=== PATIENT | female | born 1985 | race Two or more races ===

== ENCOUNTER 2018-06-22 22:35 | Observation (INO) | payer MEDICAID, OTHER ==
[~2018-06-22] VITALS: Ht 160 cm; Wt 112.0 kg
[2018-06-23 03:37] LABS: Urine Bacteria FEW /hpf (None Seen); Urine Blood Negative /uL (Negative); Urine Mucus FEW (None Seen); Urine Specific Gravity 1.035 (1.001-1.035); Urine WBC 1 /hpf (0 - 5)
[2018-06-23 03:49] LABS: Basophils # (auto) 0 uL; Basophils % (auto) 0.4 % (0.0-2.0); Eosinophils # (auto) 0.1 uL; Eosinophils % (auto) 1.3 % (0.0-7.0); Hematocrit 38.6 % (36.0-46.0); Hemoglobin 13.4 g/dL (12.2-16.2); Lymphocytes # (auto) 1.9 uL; Lymphocytes % (auto) 28.9 % (10.0-50.0); Mean Corpuscular Hgb Conc. 34.6 g/dL (32.0-36.0); Mean Corpuscular Volume 89.5 fL (80.0-100.0); Monocytes # (auto) 0.3 uL; Neutrophils # (auto) 4.1 uL; Neutrophils % (auto) 64.4 % (37.0-80.0); Nucleated Red Blood Cells % 0.1 %; Platelet Count (auto) 263 10^3/uL (140-450); Red Blood Cells 4.31 10^6/uL (4.0-5.20); Red Cell Distribution Width 13.8 % (11.8-14.3); White Blood Cell 6.4 10^3/uL (4.4-10.8)
[2018-06-23 04:07] LABS: Calcium 8.7 mg/dL (8.5-10.1); Potassium 3.8 mmol/L (3.5-5.1)
[2018-06-23 04:10] LABS: BUN/Creatinine Ratio 23.2; Bilirubin, Total 0.5 mg/dL (0.2-1.0); Total Protein 7.3 g/dL (6.4-8.2)
[2018-06-23 04:13] LABS: Albumin 3.3 g/dL (3.4-5.0)
[2018-06-23 06:38] VITALS: BP 113/62
== END 2018-06-23 07:25 | disposition home or self-care (01) | DRG 566 ==
LOC: ER 22:35 → OVERFLOW 22:36 → ER 06-23 07:25
PROVIDERS: ADMIT Anesthesiology; ATTEND Anesthesiology
DX: O24.419 Gestational diabetes mellitus in pregnancy, unspecified control (principal); Z3A.15 15 weeks gestation of pregnancy; Z82.49 Family history of ischemic heart disease and other diseases of the circulatory system; Z82.5 Family history of asthma and other chronic lower respiratory diseases; Z83.42 Family history of familial hypercholesterolemia
CPT/HCPCS: 36415; 80053; 81001; 82150; 82962; 83690; 84702; 85025; 99285; G0378

== ENCOUNTER 2019-01-01 07:50 | Inpatient (IN) | payer OTHER | END 2019-01-04 13:15 | disposition home or self-care (01) | LOC: LDRP 07:50 | PROC: 10D00Z1 Extraction of Products of Conception, Low, Open Approach (ICD-10-PCS; principal; 2019-01-01 13:25) | PROC: 0UL70CZ Occlusion of Bilateral Fallopian Tubes with Extraluminal Device, Open Approach (ICD-10-PCS; 2019-01-01 13:25) | DX: O32.8XX0 Maternal care for other malpresentation of fetus, not applicable or unspecified (principal); O24.429 Gestational diabetes mellitus in childbirth, unspecified control; O13.4 Gestational [pregnancy-induced] hypertension without significant proteinuria, complicating childbirth; O36.63X0 Maternal care for excessive fetal growth, third trimester, not applicable or unspecified; Z37.0 Single live birth; Z3A.38 38 weeks gestation of pregnancy; Z30.2 Encounter for sterilization ==

== ENCOUNTER 2022-01-11 17:29 | Emergency (ER) | payer OTHER ==
[~2022-01-11] VITALS: Ht 162.6 cm; Wt 108.9 kg
[~2022-01-11 17:29] MED LIST: PREN1TAB71 OR
[2022-01-11 19:55] LABS: Basophils # (auto) 0.1 10 ^3/uL (0-0.2); Basophils % (auto) 0.9 % (0.0-2.0); Eosinophils # (auto) 0.2 10 ^3/uL (0-0.8); Eosinophils % (auto) 2.5 % (0.0-7.0); Hematocrit 40.4 % (36.0-46.0); Hemoglobin 14.3 g/dL (12.2-16.2); Lymphocytes # (auto) 2.1 10 ^3/uL (0.4-5.4); Lymphocytes % (auto) 27.1 % (10.0-50.0); Mean Corpuscular Hemoglobin 29.7 pg (28.0-32.0); Mean Corpuscular Hgb Conc. 35.3 g/dL (32.0-36.0); Monocytes # (auto) 0.4 10 ^3/uL (0-1.3); Monocytes % (auto) 5.5 % (0.0-12.0); Neutrophils # (auto) 4.9 10 ^3/uL (1.6-8.6); Nucleated Red Blood Cells % 0.2 %; Red Blood Cells 4.81 10^6/uL (4.0-5.20); Red Cell Distribution Width 13.7 % (11.8-14.3); White Blood Cell 7.7 10^3/uL (4.4-10.8)
[2022-01-11 19:59] LABS: Urine Bacteria FEW /hpf (None Seen); Urine Blood 2+ /uL (Negative); Urine Mucus FEW (None Seen); Urine WBC 1 /hpf (0 - 5)
[2022-01-11 20:13] LABS: INR 1.02 (0.9-1.15); Partial Thromboplastin Time 27.3 sec (23.6-33.0)
[2022-01-11 20:14] LABS: Albumin 3.7 g/dL (3.4-5.0); BUN/Creatinine Ratio 15.3; Calcium 9.2 mg/dL (8.5-10.1); Potassium 3.8 mmol/L (3.5-5.1)
[2022-01-11] MEDS ORDERED: ONDANSETRON ODT 4 MG TAB PO ONE (20:15)
[2022-01-11] MEDS ORDERED: FAMOTIDINE 20 MG TAB PO ONE (20:15)
[2022-01-11] MEDS ORDERED: ALUM & MAG HYDROX-SIMETH LIQ(MAALOX) 30 ML PO ONE (20:15)
[2022-01-11 20:16] LABS: Bilirubin, Total 0.4 mg/dL (0.2-1.0); Total Protein 7.8 g/dL (6.4-8.2)
[2022-01-11] MEDS ORDERED: CEPH-322 PO (21:59)
[2022-01-11 22:10] VITALS: BP 147/79
== END 2022-01-11 22:23 | disposition home or self-care (01) ==
LOC: ER 17:29
DX: N39.0 Urinary tract infection, site not specified (principal); Z90.49 Acquired absence of other specified parts of digestive tract; Z90.710 Acquired absence of both cervix and uterus; Z79.899 Other long term (current) drug therapy; Z88.0 Allergy status to penicillin
CPT/HCPCS: 36415; 74176; 80053; 81001; 81025; 83690; 84702; 85025; 85610; 85730; 99284; Q0162

== ENCOUNTER 2022-01-13 14:46 | Emergency (ER) | payer OTHER ==
[~2022-01-13] VITALS: Ht 162.6 cm; Wt 114.8 kg
[~2022-01-13 14:46] MED LIST changes: +CEPH-322 PO
[2022-01-13] MEDS ORDERED: cloNIDine HCL 0.1 MG TAB PO ONE (15:00)
[2022-01-13 16:10] VITALS: BP 147/97
[2022-01-13] MEDS ORDERED: LOPE2TAB99 PO (16:38)
[2022-01-13] MEDS ORDERED: TRIA37.56 PO (16:38)
[2022-01-13] MEDS ORDERED: DICY20TA PO (16:38)
== END 2022-01-13 16:52 | disposition home or self-care (01) ==
LOC: ER 14:46
DX: I10 Essential (primary) hypertension (principal); K52.9 Noninfective gastroenteritis and colitis, unspecified; G43.909 Migraine, unspecified, not intractable, without status migrainosus; Z90.49 Acquired absence of other specified parts of digestive tract; Z90.710 Acquired absence of both cervix and uterus; Z79.899 Other long term (current) drug therapy; Z88.0 Allergy status to penicillin
CPT/HCPCS: 70450; 93005

== ENCOUNTER 2024-04-05 19:11 | Emergency (ER) | payer MEDICAID, OTHER ==
[~2024-04-05] VITALS: Ht 160 cm; Wt 110.0 kg
[~2024-04-05 19:11] MED LIST changes: -CEPH-322 PO; +CEPH250C PO; +DICY20TA PO; +LOPE2TAB99 PO; +TRIA37.587 PO
[2024-04-05 19:55] VITALS: BP 133/78; RESP 20; TEMP 98.2
[2024-04-05 20:53] VITALS: O2SAT 99
[2024-04-05 21:27] LABS: Basophils # (auto) 0.1 10 ^3/uL (0-0.2); Basophils % (auto) 0.5 % (0.0-2.0); Eosinophils # (auto) 0.1 10 ^3/uL (0-0.8); Eosinophils % (auto) 0.6 % (0.0-7.0); Hematocrit 46.5 % (36.0-46.0); Hemoglobin 15.6 g/dL (12.2-16.2); Lymphocytes # (auto) 2.2 10 ^3/uL (0.4-5.4); Lymphocytes % (auto) 15.3 % (10.0-50.0); Mean Corpuscular Hemoglobin 29.1 pg (28.0-32.0); Mean Corpuscular Hgb Conc. 33.6 g/dL (32.0-36.0); Mean Corpuscular Volume 86.6 fL (80.0-100.0); Monocytes # (auto) 0.6 10 ^3/uL (0-1.3); Monocytes % (auto) 3.9 % (0.0-12.0); Neutrophils # (auto) 11.7 10 ^3/uL (1.6-8.6); Neutrophils % (auto) 79.7 % (37.0-80.0); Nucleated Red Blood Cells % 0.3 %; Red Blood Cells 5.37 10^6/uL (4.0-5.20); Red Cell Distribution Width 13.7 % (11.8-14.3); White Blood Cell 14.7 10^3/uL (4.4-10.8)
[2024-04-05 21:40] LABS: Alanine Aminotransferase 23 U/L (7-40); Albumin 4.8 g/dL (3.2-4.8); Alkaline Phosphatase 67 U/L (46-116); Anion Gap 5 (5-15); Aspartate Aminotransferase 13 U/L (13-40); BUN/Creatinine Ratio 11.2 (10.0-20.0); Blood Urea Nitrogen 19 mg/dL (9-23); Calcium 10.8 mg/dL (8.5-10.1); Carbon Dioxide 32 mmol/L (20-30); Chloride 103 mmol/L (98-107); Glucose 134 mg/dL (74-106); Potassium 3.9 mmol/L (3.5-5.1); Sodium 140 mmol/L (136-145)
[2024-04-05 21:41] LABS: Total Protein 8.3 g/dL (5.7-8.2)
[2024-04-05] MEDS: LORazepam 0.5 MG TAB PO ONE (21:45)
[2024-04-05 21:57] VITALS: PULSE 81
== END 2024-04-05 22:13 | disposition home or self-care (01) ==
LOC: ER 19:11 → EDBD 19:11 → ER 22:13
DX: F41.9 Anxiety disorder, unspecified (principal); R42 Dizziness and giddiness; I10 Essential (primary) hypertension; E11.9 Type 2 diabetes mellitus without complications; E78.5 Hyperlipidemia, unspecified; Z88.0 Allergy status to penicillin; Z90.710 Acquired absence of both cervix and uterus; Z98.51 Tubal ligation status
CPT/HCPCS: 36415; 80053; 84484; 85025; 93005

== ENCOUNTER 2024-12-23 10:33 | Emergency (ER) | payer MEDICAID ==
[~2024-12-23] VITALS: Ht 160 cm; Wt 107.3 kg
--- NOTE | 2024-12-23 10:56 | ED.PDOC ---
GI ASSESSMENT HPI Comments HPI: Poor Historian 39 y.o female presents to the ED for a chief complaint of LUQ pain associated with nausea, vomiting and diarrhea that started 1 day ago. Patient reports pain worsened today, reported about 5 episodes of non bloody, yellow emesis and diarrhea today. Patient denies any recent travel outside the country, sick contacts, fever, chills. Patient reports there is no worsening or alleviating factors. Vitals: BP: 128/81 HR: 72 Temp: 98 F SPO2: 98% RA RR: 17 Allergies: Penicillins Past medical history: DM, HTN Past surgical history: appendectomy and tubal ligation . REVIEW OF SYSTEMS: CONSTITUTIONAL: Denies acute: fever, diaphoresis, chills, HEAD: Denies acute: headache, photophobia Eyes: Denies acute: Double vision, vision loss, eye pain, eye discharge. EARS: Denies acute: tinnitus, hearing loss, ear discharge, ear pain, THROAT: Denies acute: sore throat, swelling, difficulty swallowing , pain with swallowing, change in voice. NECK: Denies acute: neck pain, neck swelling, stiff neck. HEART: Denies acute : chest pain, palpitations, LUNGS: Denies acute: SOB, wheezing, cough, hemoptysis ABDOMEN: Denies acute: melena , hematemesis, hematochezia SKIN: Denies acute: rash, redness, lesions, itchiness. EXTREMITIES: Denies acute: calf pain, numbness, tingling, weakness, denies pain in extremity. Denies acute: Low back pain. Neuro: Denies acute: focal neurological deficit, motor or sensory focal neurological deficit, tremors, seizure like activity, confusion, dizziness, change in mental status, loss of bowel or bladder function, cauda equina like symptoms. : Denies acute: dysuria, hematuria, flank pain, increase in urinary frequency. PSYCH: Denies acute: hallucination, suicidal ideation, homicidal ideation. FEMALE: Denies acute: abnormal vaginal bleeding, foul odor, unusual discharge. PHYSICAL EXAM: General: no acute distress, awake and alert. Head: normocephalic, atraumatic. Neck: supple, trachea is midline, no swelling. Throat: Normal phonation. Eyes:, no erythema, no purulent discharge, no proptosis, no icterus. Heart: regular rate, regular rhythm, no significant murmur appreciated. Lungs: no apparent respiratory distress, Able to speak in full sentences. No wheezing, no rhonchi, no crackles. No stridors Clear to auscultation bilaterally. Abdomen: Left upper quad tender to palpation, non distended, soft, no guarding, no rebound, + bowel sounds. Neuro: Awake, Alert, oriented to name, self, situation, follows commands GCS=15. Speech is normal. Skin: no petechia, no purpura, no cyanosis, non-pale, not jaundice. Lower extremities: --no - Pitting edema no deformity, no focal swelling, no calf TTP. Makes eye contact. moves all four extremities. Face: no apparent facial droop. Left CVA tenderness to percussion Ambulating in the ED independently. ED COURSE: Chief Complaint: Abdominal Pain Time Seen by MD: 10:47 Primary Care Provider: KAM Reviewed Notes: Nurses Notes, Allergies Allergies: Coded Allergies: Penicillins (Verified Allergy, Severe, 12/23/13) Home Meds Active Scripts Ciprofloxacin Hcl (Cipro) 500 Mg Tab, 500 MG PO BID for 7 Days, #14 TAB Prov:BERNICE YANES DO 12/23/24 Ondansetron Odt 4MG Tab (ZOFRAN PO) 4 Mg Tb, 4 MG PO Q8HPRN PRN for 3 Days, #9 TAB ODT TAB-DISSOLVE IN MOUTH, THEN SWALLOW Prov:BERNICE YANES DO 12/23/24 Dicyclomine Hcl (Dicyclomine Hcl) 20 Mg Tab, 20 MG PO TID, #30 TAB Prov:ANDRÉS LYLE 01/13/22 Loperamide Hcl (Imodium A-D) 2 Mg Tab, 2 MG PO TID, #20 TAB Prov:ANDRÉS LYLE 01/13/22 Hydrochlorothiazide W/Triamter (Dyazide 37.5/25MG) 1 Cap Cp, 1 CAP PO DAILY, #30 CAP 3 Refills Prov:ANDRÉS LYLE 01/13/22 Cephalexin (KEFLEX CAPSULE) 250 Mg Cp, 250 MG PO QID for 7 Days, #28 TAB Prov:JALEESA LOPEZ MD 01/11/22 Reported Medications Vit W/ Ferrous Fumara (PNV PLUS MULTIVI) Plus Tab, 1 OR, TAB 01/02/19 Information Source: Patient Mode of Arrival: Ambulatory Timing: Days (1) Past Medical History PAST MEDICAL HISTORY: DM, High Lipids, HTN Surgical History: Appendectomy, BTL, Hysterectomy MANAGER UTILIZATION REVIEW History: Denies all MANAGER UTILIZATION REVIEW Hx Family History Family History: Reviewed,noncontributory to illness, No family hx of DM, No family hx of Heart corey Family History (Other): high lipids, asthma Social History Smoker: Non-Smoker Alcohol: Denies ETOH Use Drugs: Denies Drug Use Lives In: Home Was a procedure done? Was a procedure done?: No GI differential Dx Differential Diagnosis: Diverticular disease, Esophagitis, Gastroenteritis, Inflammatory BD, Electrolyte Imbalance, Food Poisoning, , Viral, Other (DDX include Diverticulitis, colitis, gastroenteritis, acute abdomen, SBO, enteritis, constipation, volvulus, appendicitis, Gallbladder disease, choledocolithiasis, ascending cholangitis, pancreatitis, intraAbdominal mass/neoplasm, hepatitis, UTI, pylonephritis, kidney stone, aneurysm, dissection, Inflammatory bowel disease, gastroparesis, ischemic bowel, ovarian torsion, ovarian cyst/mass, tubo-ovarian abscess, , ectopic , PID, STD.) X-Ray, Labs, Meds, VS Vital Signs Date Time Temp Pulse Resp B/P (MAP) Pulse Ox O2 Delivery O2 Flow Rate FiO2 12/23/24 15:40 98.2 71 16 125/69 (87) 99 98.2 12/23/24 14:15 97.7 74 16 117/63 (81) 97 97.7 12/23/24 11:20 78 17 95 Room Air* 0 21 12/23/24 11:20 98.5 78 17 123/68 (86) 95 98.5 12/23/24 10:51 98.0 77 17 128/81 (97) 95 Lab Test 12/23/24 12:30 12/23/24 11:00 Range/Units Urine Color Yellow Yellow Urine Clarity Turbid H Clear Urine pH 5.5 5.0-9.0 Urine Specific [place] 1.033 1.001-1.035 Urine Protein Trace H Negative Urine Ketones Negative Negative Urine Blood Negative Negative /uL Urine Nitrite Negative Negative Urine Bilirubin Negative Negative Urine Urobilinogen Normal Negative mg/dL Urine Leukocyte Esterase Negative Negative /uL Urine RBC <1 0 - 4 /hpf Urine Microscopic WBC 1 0-5 /HPF Urine Squamous Epithelial Cells Mod <5 /hpf Urine Bacteria Few H None Seen /hpf Urine Hyaline Casts Few 0 - 2 /lpf Urine Mucus Few None Seen Urine Glucose Normal Normal mg/dL Urine Test Negative Negative Stool for White Cells None seen White Blood Count 14.6 H 4.4-10.8 10^3/uL Red Blood Count 5.00 4.0-5.20 10^6/uL Hemoglobin 14.8 12.2-16.2 g/dL Hematocrit 44.1 36.0-46.0 % Mean Corpuscular Volume 88.3 80.0-100.0 fL Mean Corpuscular Hemoglobin 29.7 28.0-32.0 pg Mean Corpuscular Hemoglobin Concent 33.7 32.0-36.0 g/dL Red Cell Distribution Width 14.3 11.8-14.3 % Platelet Count 354 140-450 10^3/uL Mean Platelet Volume 7.0 6.9-10.8 fL Neutrophils (%) (Auto) 88.3 H 37.0-80.0 % Lymphocytes (%) (Auto) 8.0 L 10.0-50.0 % Monocytes (%) (Auto) 2.8 0.0-12.0 % Eosinophils (%) (Auto) 0.8 0.0-7.0 % Basophils (%) (Auto) 0.1 0.0-2.0 % Neutrophils # (Auto) 12.9 H 1.6-8.6 10 ^3/uL Lymphocytes # (Auto) 1.2 0.4-5.4 10 ^3/uL Monocytes # (Auto) 0.4 0-1.3 10 ^3/uL Eosinophils # (Auto) 0.1 0-0.8 10 ^3/uL Basophils # (Auto) 0 0-0.2 10 ^3/uL Nucleated Red Blood Cells 0.0 % Sodium Level 140 136-145 mmol/L Potassium Level 3.8 3.5-5.1 mmol/L Chloride Level 105 98-107 mmol/L Carbon Dioxide Level 24 20-31 mmol/L Anion Gap 11 5-15 Blood Urea Nitrogen 20 9-23 mg/dL Creatinine 0.78 0.550-1.02 mg/dL Glomerular Filtration Rate Calc 98 >90 mL/min BUN/Creatinine Ratio 25.6 H 10.0-20.0 Serum Glucose 146 H 74-106 mg/dL Lactic Acid Level 0.7 0.4-2.0 mmol/L Calcium Level 10.2 8.7-10.4 mg/dL Total Bilirubin 0.9 0.2-1.0 mg/dL Aspartate Amino Transferase (AST) 22 13-40 U/L Alanine Aminotransferase (ALT) 36 7-40 U/L Alkaline Phosphatase 70 46-116 U/L Troponin I High Sensitivity < 3 L </=34 ng/L Total Protein 7.7 5.7-8.2 g/dL Albumin 4.9 H 3.2-4.8 g/dL Lipase 44 12-53 U/L Microbiology Date/Time Source Procedure Growth Status 12/23/24 12:30 Stool Stool Culture - Preliminary Resulted 12/23/24 12:30 Stool Shiga Toxin I & II - Final Resulted Current Medications Medications (Trade) Dose Ordered Sig/Reyna Route Start Time Stop Time Status Last Admin Sodium Chloride 1,000 ml @ 1,000 mls/hr Q1H ONCE IV 12/23/24 11:00 12/23/24 11:59 DC 12/23/24 11:00 Ondansetron HCl (Zofran) 8 mg ONCE ONCE IV 12/23/24 11:00 12/23/24 11:59 DC 12/23/24 12:19 Acetaminophen/ Hydrocodone Bitart (Palacios 5/325MG Tab) 1 tab ONCE ONCE PO 12/23/24 15:00 12/23/24 15:02 DC 12/23/24 15:36 [place] [address] Ph: [phone] DIAGNOSTIC IMAGING Diagnostic Imaging Report : [id number] Signed PATIENT: JORGE WISE ACCT: [id number] UNIT: [id number] : 1985 LOC: ER ROOM / BED: / AGE / SEX: 39 / F ADM STATUS: REG ER SERVICE 1050 ORDERING PHYSICIAN: BERNICE YANES DO PROCEDURE(s): ABPL - CT AB PEL WO CON-NO ORAL OR IV REASON: LUQ pain n/v/d ORDER NUMBER(s): [id number], ACCESSION NUMBER(s): [id number] Exam: CT CT AB PEL WO CON-NO ORAL OR IV History: LUQ pain n/v/d Comparison Study: CT ABD PELVIS WO CONTRAST on DOS: 01/11/22 Technique: Multidetector spiral CT of the abdomen and pelvis was performed from lung bases to pubic symphysis. Imaging was performed without IV contrast. Axial, coronal and sagittal multiplanar reformats were obtained from the axial data set by the technologist. Radiation dose : Abdomen/Pelvis: CTDIvol 24.84 mGy, DLP 1503.06 mGy*cm. Findings: Evaluation of solid organs is limited due to lack of intravenous contrast use. Lung Bases: No acute or significant lung base finding. Normal heart size. No pleural or pericardial effusion. Liver: The liver is normal in size. No focal lesions. Gallbladder and biliary Tree: Unremarkable Spleen: Unremarkable Pancreas: The pancreas is grossly normal in appearance. Adrenal Glands: Unremarkable Kidneys: Kidneys are grossly normal without calculi or hydronephrosis. Bladder: Grossly unremarkable for degree of distention. Bowel: The stomach is grossly normal in appearance. Small bowel and colon are normal in caliber and distribution. The appendix is not visualized; however, no secondary findings of acute appendicitis identified. Ascites: Absent Lymphadenopathy: No mesenteric, retroperitoneal or periportal lymphadenopathy. Abdominal wall and Mesentery: Unremarkable. Vasculature: The visualized abdominal aorta is normal in size and caliber. Evaluation of abdominal and pelvic vessels is limited due to lack of intravenous contrast. Pelvic Organs: Unremarkable Musculoskeletal: No aggressive focal bony lesions, acute fractures or dislocation. IMPRESSION: 1. No acute abdominal or pelvic findings. No hydronephrosis or nephrolithiasis. Radiation optimization: All CT scans at this facility use at least one of these dose optimization techniques: Automated exposure control mA and/or kV adjustment per patient size (includes targeted exams where dose is matched to clinical indication) or iterative reconstruction. HS:Y ATED BY: CALI RICO MD DICTATED DATE/TIME: 12/23/24 1400 SIGNED BY: CALI RICO MD SIGNED DATE/TIME: 12/23/24 1400 CC: Time of 1ST Reevaluation: 10:52 Reevaluation 1ST: Unchanged Time of 2ND Reevaluation: 23:04 Reevaluation 2ND: Improved Patient Education/Counseling: Diagnosis, Treatment Family Education/Counseling: No Family Present Comments Patient presented with the above HPI.---abdominal pain---workup was initiated. patient was found with the above mentioned diagnosis. the following medications were ordered: please refer to order lists of meds and tests obtained by myself Dr. Yanes. Patient ED course and VS have been stabilized. Patient has been reassessed in the ED and remained in a stable condition. Pertinent incidental findings were discussed with the patient and/or family. Patient/family voices understanding and is agreeable with plan. Patient has been observed in the ED adequate length of time to insure i mprovement/stability. Escalation of care considered: Consideration of escalation to observation or admission Stool studies are still pending. Patient was given Cipro prescription for potential infectious diarrhea. Patient was DISCHARGED home in a stable condition. All the reports of any imaging studies that were ordered by myself were reviewed by myself. Departure 1 Departure Time of Disposition: 14:51 Impression: Primary Impression: Left upper quadrant abdominal pain Additional Impression: Nausea vomiting and diarrhea Disposition: 01 HOME / SELF CARE / HOMELESS Condition: Stable Additional Instructions: ADDITIONAL DISCHARGE INSTRUCTIONS: YOU MUST FOLLOW-UP WITH YOUR PRIMARY CARE/FAMILY DOCTOR IN 1 TO 2 DAYS. IF YOU ARE UNABLE TO SEE YOUR PRIMARY CARE/FAMILY DOCTOR, PLEASE RETURN TO OUR EMERGENCY ROOM FOR RE-ASSESSMENT AND RE-EVALUATION IN 1 TO 2 DAYS. RETURN TO THE EMERGENCY ROOM HERE IN OUR FACILITY OR TO THE NEAREST ER [facility] IF YOUR SYMPTOMS CHANGE OR WORSEN. CONSULTATIONS: YOU MUST FOLLOW-UP FOR CONSULTATION SOON POSSIBLE WITH: DR. CORDEROOLOGY IN 1-2 DAYS. PLEASE CALL FOR APPOINTMENT. YOU MUST CALL THE CONSULTANTS OFFICE YOURSELF TO MAKE AN APPOINTMENT. YOU MAY NEED TO ARRANGE THAT THROUGH YOUR INSURANCE AND/OR YOUR PRIMARY/FAMILY DOCTOR. IF YOU ARE UNABLE TO SEE THE LEARNING AND DEVELOPMENT COORDINATOR IN 1 TO 2 DAYS, YOU MUST RETURN TO OUR EMERGENCY ROOM (OR ANY OTHER ER OF YOUR CHOICE) FOR RE-ASSESSMENT AND RE- EVALUATION. ADEQUATE FLUID HYDRATION. Avoid fatty greasy spicy food. Avoid caffeinated products. Avoid NSAIDs. Check on your stool studies results. It is still pending. BELOW IS A COPY OF YOUR RADIOLOGICAL REPORT FOR FOLLOW UP: [facility] [id number] [facility] [address] Ph: [phone] DIAGNOSTIC IMAGING Diagnostic Imaging Report : [id number] Signed PATIENT: JORGE WISE ACCT: [id number] UNIT: [id number] : 1985 LOC: ER ROOM / BED: / AGE / SEX: 39 / F ADM STATUS: REG ER SERVICE 1050 ORDERING PHYSICIAN: BERNICE YANES DO PROCEDURE(s): ABPL - CT AB PEL WO CON-NO ORAL OR IV REASON: LUQ pain n/v/d ORDER NUMBER(s): [id number], ACCESSION NUMBER(s): [id number] Exam: CT CT AB PEL WO CON-NO ORAL OR IV History: LUQ pain n/v/d Comparison Study: CT ABD PELVIS WO CONTRAST on DOS: 01/11/22 Technique: Multidetector spiral CT of the abdomen and pelvis was performed from lung bases to pubic symphysis. Imaging was performed without IV contrast. Axial, coronal and sagittal multiplanar reformats were obtained from the axial data set by the technologist. Radiation dose : Abdomen/Pelvis: CTDIvol 24.84 mGy, DLP 1503.06 mGy*cm. Findings: Evaluation of solid organs is limited due to lack of intravenous contrast use. Lung Bases: No acute or significant lung base finding. Normal heart size. No pleural or pericardial effusion. Liver: The liver is normal in size. No focal lesions. Gallbladder and biliary Tree: Unremarkable Spleen: Unremarkable Pancreas: The pancreas is grossly normal in appearance. Adrenal Glands: Unremarkable Kidneys: Kidneys are grossly normal without calculi or hydronephrosis. Bladder: Grossly unremarkable for degree of distention. Bowel: The stomach is grossly normal in appearance. Small bowel and colon are normal in caliber and distribution. The appendix is not visualized; however, no secondary findings of acute appendicitis identified. Ascites: Absent Lymphadenopathy: No mesenteric, retroperitoneal or periportal lymphadenopathy. Abdominal wall and Mesentery: Unremarkable. Vasculature: The visualized abdominal aorta is normal in size and caliber. Evaluation of abdominal and pelvic vessels is limited due to lack of intravenous contrast. Pelvic Organs: Unremarkable Musculoskeletal: No aggressive focal bony lesions, acute fractures or dislocation. IMPRESSION: 1. No acute abdominal or pelvic findings. No hydronephrosis or nephrolithiasis. Radiation optimization: All CT scans at this facility use at least one of these dose optimization techniques: Automated exposure control mA and/or kV adjustment per patient size (includes targeted exams where dose is matched to clinical indication) or iterative reconstruction. HS:Y ATED BY: CALI RICO MD DICTATED DATE/TIME: 12/23/24 1400 SIGNED BY: CALI RICO MD SIGNED DATE/TIME: 12/23/24 1400 CC: e-Prescriptions Ciprofloxacin Hcl (Cipro) 500 Mg Tab 500 MG PO BID for 7 Days, #14 TAB Prov: BERNICE YANES DO 12/23/24 Ondansetron Odt 4MG Tab (ZOFRAN PO) 4 Mg Tb 4 MG PO Q8HPRN PRN for 3 Days, #9 TAB ODT TAB-DISSOLVE IN MOUTH, THEN SWALLOW Prov: BERNICE YANES DO 12/23/24 Discharged With: Self Critical Care Note Critical Care Time?: No I personally scribed for BERNICE YANES DO ([email or web address]) on 12/23/24 at 10:56. Electronically submitted by Cynthia Finnegan ([facility]). I personally scribed for BERNICE YANES DO ([email or web address]) on 12/23/24 at 14:39. Electronically submitted by Cynthia Finnegan ([facility]). BERNICE YANES DO Dec 23, 2024 10:56
[2024-12-23] MEDS: SODIUM CHLORIDE 0.9% 1,000 ML IV ONE (11:00)
[2024-12-23 11:19] LABS: Basophils # (auto) 0 10 ^3/uL (0-0.2); Basophils % (auto) 0.1 % (0.0-2.0); Eosinophils # (auto) 0.1 10 ^3/uL (0-0.8); Eosinophils % (auto) 0.8 % (0.0-7.0); Hematocrit 44.1 % (36.0-46.0); Hemoglobin 14.8 g/dL (12.2-16.2); Lymphocytes # (auto) 1.2 10 ^3/uL (0.4-5.4); Mean Corpuscular Hemoglobin 29.7 pg (28.0-32.0); Mean Corpuscular Hgb Conc. 33.7 g/dL (32.0-36.0); Mean Corpuscular Volume 88.3 fL (80.0-100.0); Monocytes # (auto) 0.4 10 ^3/uL (0-1.3); Monocytes % (auto) 2.8 % (0.0-12.0); Neutrophils # (auto) 12.9 10 ^3/uL (1.6-8.6); Neutrophils % (auto) 88.3 % (37.0-80.0); Platelet Count (auto) 354 10^3/uL (140-450); Red Cell Distribution Width 14.3 % (11.8-14.3); White Blood Cell 14.6 10^3/uL (4.4-10.8)
[2024-12-23 11:20] VITALS: PULSE 78; RESP 17; O2SAT 95
[2024-12-23 12:15] LABS: Alanine Aminotransferase 36 U/L (7-40); Alkaline Phosphatase 70 U/L (46-116); Anion Gap 11 (5-15); Aspartate Aminotransferase 22 U/L (13-40); BUN/Creatinine Ratio 25.6 (10.0-20.0); Bilirubin, Total 0.9 mg/dL (0.2-1.0); Blood Urea Nitrogen 20 mg/dL (9-23); Calcium 10.2 mg/dL (8.7-10.4); Carbon Dioxide 24 mmol/L (20-31); Chloride 105 mmol/L (98-107); Lipase 44 U/L (12-53); Potassium 3.8 mmol/L (3.5-5.1); Sodium 140 mmol/L (136-145); Total Protein 7.7 g/dL (5.7-8.2)
[2024-12-23] MEDS: ONDANSETRON HCL 4 MG/2 ML VIAL IV ONE (12:19)
[2024-12-23 12:23] LABS: Albumin 4.9 g/dL (3.2-4.8); Glucose 146 mg/dL (74-106)
[2024-12-23 12:55] LABS: Urine Bacteria FEW /hpf (None Seen); Urine Blood Negative /uL (Negative); Urine Clarity Turbid (Clear); Urine Color Yellow (Yellow); Urine Hyaline Cast FEW /lpf (0 - 2); Urine Mucus FEW (None Seen); Urine Protein, UAD TRACE (Negative); Urine Specific Gravity 1.033 (1.001-1.035); Urine Squamous Epithelial Cell MOD /hpf (<5); Urine Urobilinogen Normal (Negative); Urine WBC 1 /HPF (0-5); Urine pH 5.5 (5.0-9.0)
--- NOTE | 2024-12-23 14:03 | DVH ---
Exam: CT CT AB PEL WO CON-NO ORAL OR IV History: LUQ pain n/v/d Comparison Study: CT ABD PELVIS WO CONTRAST on DOS: 01/11/22 Technique: Multidetector spiral CT of the abdomen and pelvis was performed from lung bases to pubic symphysis. Imaging was performed without IV contrast. Axial, coronal and sagittal multiplanar reform ats were obtained from the axial data set by the technologist. Radiation dose : Abdomen/Pelvis: CTDIvol 24.84 mGy, DLP 1503.06 mGy*cm. Findings: Evaluation of solid organs is limited due to lack of intravenous contrast use. Lung Bases: No acute or significant lung base finding. Normal heart size. No pleural or pericardial effusion. Liver: The liver is normal in size. No focal lesions. Gallbladder and biliary Tree: Unremarkable Spleen: Unremarkable Pancreas: The pancreas is grossly normal in appearance. Adrenal Glands: Unremarkable Kidneys: Kidneys are grossly normal without calculi or hydronephrosis. Bladder: Grossly unremarkable for degree of distention. Bowel: The stomach is grossly normal in appearance. Small bowel and colon are normal in caliber and d istribution. The appendix is not visualized; however, no secondary findings of acute appendicitis id entified. Ascites: Absent Lymphadenopathy: No mesenteric, retroperitoneal or periportal lymphadenopathy. Abdominal wall and Mesentery: Unremarkable. Vasculature: The visualized abdominal aorta is normal in size and caliber. Evaluation of abdominal a nd pelvic vessels is limited due to lack of intravenous contrast. Pelvic Organs: Unremarkable Musculoskeletal: No aggressive focal bony lesions, acute fractures or dislocation. IMPRESSION: 1. No acute abdominal or pelvic findings. No hydronephrosis or nephrolithiasis. Radiation optimization: All CT scans at this facility use at least one of these dose optimization silver hniques: Automated exposure control mA and/or kV adjustment per patient size (includes targeted exams where dose is matched to clinical indication) or iterative reconstruction. HS:Y
[2024-12-23] MEDS ORDERED: ZOFR4T PO (14:53)
[2024-12-23] MEDS ORDERED: CIPR-173 PO (14:53)
[2024-12-23] MEDS: HYDROcodone-ACET 5/325MG TAB PO ONE (15:36)
[2024-12-23 15:40] VITALS: BP 125/69; PULSE 71; RESP 16; TEMP 98.2; O2SAT 99
== END 2024-12-23 16:03 | disposition home or self-care (01) ==
LOC: ER 10:33
DX: R10.12 Left upper quadrant pain (principal); R11.2 Nausea with vomiting, unspecified; R19.7 Diarrhea, unspecified; I10 Essential (primary) hypertension; E11.9 Type 2 diabetes mellitus without complications; E78.5 Hyperlipidemia, unspecified; Z90.49 Acquired absence of other specified parts of digestive tract; Z90.710 Acquired absence of both cervix and uterus; Z88.0 Allergy status to penicillin; Z79.899 Other long term (current) drug therapy
CPT/HCPCS: 36415; 74176; 80053; 81001; 81025; 83605; 83690; 84484; 85025; 85048; 87045; 87177; 87427; 96361; 96374; 99285; J2405; J7030

== ENCOUNTER 2025-01-18 16:34 | Emergency (ER) | payer MEDICAID ==
[~2025-01-18 16:34] MED LIST changes: +CIPR-173 PO; +ZOFR4T PO
--- NOTE | 2025-01-18 17:00 | ED.PDOC ---
History of Present Illness(SKN HPI Comments 39-year-old female with PMHx DM, HTN, HLD presents with a chief complaint of hand numbness and multiple wounds s/p dog bite. Patient states that her dog bit her hand and now has multiple puncture wounds and lacerations to her left hand. Patient states the hand is extremely swollen and is now starting to become numb. Denies any weakness. There is limited range of motion of the digits due to pain. Patient reports that the dog is up to date on vaccinations. Patient has not had a tetanus shot in the last 5 years. Time Seen by MD: 16:52 Primary Care Provider: KAM History of Present Illness: Medications, Allergies Allergies: Coded Allergies: Penicillins (Verified Allergy, Severe, 12/23/13) Home Meds Active Scripts Ciprofloxacin Hcl (Cipro) 500 Mg Tab, 500 MG PO BID for 7 Days, #14 TAB Prov:BERNICE YANES DO 12/23/24 Ondansetron Odt 4MG Tab (ZOFRAN PO) 4 Mg Tb, 4 MG PO Q8HPRN PRN for 3 Days, #9 TAB ODT TAB-DISSOLVE IN MOUTH, THEN SWALLOW Prov:BERNICE YANES DO 12/23/24 Dicyclomine Hcl (Dicyclomine Hcl) 20 Mg Tab, 20 MG PO TID, #30 TAB Prov:ANDRÉS LYLE 01/13/22 Loperamide Hcl (Imodium A-D) 2 Mg Tab, 2 MG PO TID, #20 TAB Prov:ANDRÉS LYLE 01/13/22 Hydrochlorothiazide W/Triamter (Dyazide 37.5/25MG) 1 Cap Cp, 1 CAP PO DAILY, #30 CAP 3 Refills Prov:ANDRÉS LYLE 01/13/22 Cephalexin (KEFLEX CAPSULE) 250 Mg Cp, 250 MG PO QID for 7 Days, #28 TAB Prov:JALEESA LOPEZ MD 01/11/22 Reported Medications Vit W/ Ferrous Fumara (PNV PLUS MULTIVI) Plus Tab, 1 OR, TAB 01/02/19 Information Source: Patient Mode of Arrival: Ambulatory Severity: Moderate Timing: Minutes Duration: Since onset Prehospital treatment: None Location: Hand (LEFT) Mechanism: Dog Occurence: Outdoors Object: None Condition of Object: None Wound Type: Puncture Immunization Status of Animal: Current Tetanus: >5 Years History of: Diabetes Associated Signs and Symptoms: Numbness Past Medical History PAST MEDICAL HISTORY: DM, High Lipids, HTN Surgical History: Appendectomy, BTL, Hysterectomy [employer]CH[employer]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 Family History Family History: Reviewed,noncontributory to illness, No family hx of DM, No family hx of Heart corey Family History (Other): high lipids, asthma Social History Smoker: Non-Smoker Alcohol: Denies ETOH Use Drugs: Denies Drug Use Lives In: Home Constitutional: denies: chills, diaphoresis, fatigue, fever, malaise, sweats, weakness, others EENTM: denies: blurred vision, double vision, ear bleeding, ear discharge, ear drainage, ear pain, ear ringing, eye pain, eye redness, hearing loss, mouth pain, mouth swelling, nasal discharge, nose bleeding, nose congestion, nose pain, photophobia, tearing, throat pain, throat swelling, voice changes, others Respiratory: denies: cough, hemoptysis, orthopnea, SOB at rest, shortness of breath, SOB with excertion, stridor, wheezing, others Cardiovascular: denies: chest pain, dizzy spells, diaphoresis, Dyspnea on exertion, edema, irregular heart beat, left arm pain, lightheadedness, palpitations, PND, syncope, others Gastrointestinal: denies: abdomen distended, abdominal pain, blood streaked bowels, constipated, diarrhea, dysphagia, difficulty swallowing, hematemesis, melena, nausea, poor appetite, poor fluid intake, rectal bleeding, rectal pain, vomiting, others Genitourinary: denies: abnormal vagina bleeding, burning, dyspareunia, dysuria, flank pain, frequency, hematuria, incontinence, pain, , vagina discharge, urgency, others Neurological: reports: numbness; denies: dizziness, fainting, headache, left sided numbness, left sided weakness, paresthesia, pre-existing deficit, right sided numbness, right sided weakness, seizure, speech problems, tingling, tremors, weakness, others Musculoskeletal: denies: back pain, gout, joint pain, joint swelling, muscle pain, muscle stiffness, neck pain, others Integumetry: reports: wounds; denies: bruises, change in color, change in hair/nails, dryness, laceration, lesions, lumps, rash, others Allergic/Immunocompromised: denies: Difficulty Healing, Frequent Infections, Hives, Itching, others Hematologic/Lymphatic: denies: anemia, blood clots, easy bleeding, easy bruising, swollen glands, others Endocrine: denies: excessive hunger, excessive sweating, excessive thirst, excessive urination, flushing, intolerance to cold, intolerance to heat, unexplained weight gain, unexplained weight loss, others Psychiatric: denies: anxiety, bipolar disorder, depression, hopeless, panic disorder, schizophrenia, sleepless, suicidal, others All Other Systems: Reviewed and Negative Physical Exam General Appearance: Moderate Distress HEENT: PERRL/EOMI Neck: Full Range of Motion, Normal Inspection Respiratory: Lungs Clear, No Accessory Muscle Use, No Respiratory Distress, Normal Breath Sounds Cardiovascular: No JVD, Regular Rate/Rhythm Breast Exam: Deferred Gastrointestinal: Non Tender, Soft Genitalia: Deferred Pelvic: Deferred Rectal: Deferred Extremities: Other (Right hand diffuse moderate to severe soft tissue swelling and tenderness. Multiple superficial puncture wounds. Three intermediate depth linear lacerations on the dorsum measuring approximately 2.5, 2.5 and 3 cm. No foreign body or obvious bony deformity noted. Capillary refill less than 2 seconds in all digits.) Neurologic: Alert (Oriented x4), Other (Ambulatory. No gross focal deficit.) Cerebellar Function: NOT DONE Reflexes: NOT DONE Skin: Other (Right hand diffuse soft tissue swelling, bruising and tenderness. Multiple superficial puncture wounds. Three linear intermediate depth lacerations on the dorsum: 2.5, 2.5 and 3 cm) Peripheral Pulses: 2+ Radial (R), 2+ Radial (L) Lymphatic: NOT DONE Was a procedure done? Was a procedure done?: No Differential Diagnosis (INTG) Differential Diagnosis: Cellulitis, Contusion, Fracture, Hematoma, Laceration, Puncture Wound Differential Diagnosis: Abscess X-Ray, Labs, Meds, VS Vital Signs Date Time Temp Pulse Resp B/P (MAP) Pulse Ox O2 Delivery O2 Flow Rate FiO2 01/18/25 23:42 98.9 73 16 125/85 (98) 98 98.9 01/18/25 23:37 125/85 01/18/25 20:34 98 17 131/87 01/18/25 20:00 98.8 109 97 135/45 (75) 96 98.8 01/18/25 19:21 99 22 97 Room Air* 0 21 01/18/25 17:44 75 18 98 Room Air 01/18/25 17:44 98.9 78 17 139/87 (104) 98 98.9 01/18/25 17:43 75 19 139/87 01/18/25 16:58 97.6 95 22 152/100 (117) 98 97.6 Lab Test 01/18/25 20:13 Range/Units White Blood Count 10.3 4.4-10.8 10^3/uL Red Blood Count 4.53 4.0-5.20 10^6/uL Hemoglobin 14.1 12.2-16.2 g/dL Hematocrit 40.2 36.0-46.0 % Mean Corpuscular Volume 88.7 80.0-100.0 fL Mean Corpuscular Hemoglobin 31.0 28.0-32.0 pg Mean Corpuscular Hemoglobin Concent 35.0 32.0-36.0 g/dL Red Cell Distribution Width 14.2 11.8-14.3 % Platelet Count 281 140-450 10^3/uL Mean Platelet Volume 6.7 L 6.9-10.8 fL Neutrophils (%) (Auto) 74.3 37.0-80.0 % Lymphocytes (%) (Auto) 19.2 10.0-50.0 % Monocytes (%) (Auto) 3.9 0.0-12.0 % Eosinophils (%) (Auto) 2.1 0.0-7.0 % Basophils (%) (Auto) 0.5 0.0-2.0 % Neutrophils # (Auto) 7.6 1.6-8.6 10 ^3/uL Lymphocytes # (Auto) 2.0 0.4-5.4 10 ^3/uL Monocytes # (Auto) 0.4 0-1.3 10 ^3/uL Eosinophils # (Auto) 0.2 0-0.8 10 ^3/uL Basophils # (Auto) 0.1 0-0.2 10 ^3/uL Nucleated Red Blood Cells 0.0 % Prothrombin Time 10.7 9.3-11.8 sec Prothrombin Time INR 1.01 0.9-1.15 Sodium Level 140 136-145 mmol/L Potassium Level 4.1 3.5-5.1 mmol/L Chloride Level 104 98-107 mmol/L Carbon Dioxide Level 27 20-31 mmol/L Anion Gap 9 5-15 Blood Urea Nitrogen 15 9-23 mg/dL Creatinine 0.84 0.550-1.02 mg/dL Glomerular Filtration Rate Calc 89 >90 mL/min BUN/Creatinine Ratio 17.9 10.0-20.0 Serum Glucose 118 H 74-106 mg/dL Lactic Acid Level 1.2 0.4-2.0 mmol/L Calcium Level 9.6 8.7-10.4 mg/dL Total Bilirubin 0.5 0.2-1.0 mg/dL Aspartate Amino Transferase (AST) 30 13-40 U/L Alanine Aminotransferase (ALT) 28 7-40 U/L Alkaline Phosphatase 68 46-116 U/L C-Reactive Protein High Sensitivity 0.17 <1.0 mg/dL Total Protein 7.2 5.7-8.2 g/dL Albumin 4.6 3.2-4.8 g/dL Current Medications Medications (Trade) Dose Ordered Sig/Reyna Route Start Time Stop Time Status Last Admin Morphine Sulfate 4 mg ONCE ONCE IV 01/18/25 17:00 01/18/25 17:02 DC 01/18/25 17:43 Ondansetron HCl (Zofran) 4 mg ONCE ONCE IV 01/18/25 17:00 01/18/25 17:02 DC 01/18/25 17:43 Diphtheria/ Tetanus/Acell Pertussis (Boostrix T-Dap) 0.5 ml ONCE ONCE IM 01/18/25 17:00 01/18/25 17:02 DC 01/18/25 18:44 Doxycycline Hyclate 100 ml @ 50 mls/hr ONCE ONCE IV 01/18/25 17:00 01/18/25 18:59 DC 01/18/25 19:05 Metronidazole 100 ml @ 100 mls/hr ONCE ONCE IV 01/18/25 17:00 01/18/25 17:59 DC 01/18/25 17:43 Ketorolac Tromethamine (Toradol Injection) 30 mg ONCE ONCE IV 01/18/25 19:30 01/18/25 19:31 DC 01/18/25 19:46 Fentanyl Citrate 25 mcg ONCE ONCE IV 01/18/25 22:45 01/18/25 22:46 DC 01/18/25 23:37 PROCEDURE(s): LHNCT - CT L HAND WO CONTRAST REASON: SEVERE DOG BITE ORDER NUMBER(s): [id number], ACCESSION NUMBER(s): [id number] EXAM: CT CT L HAND WO CONTRAST INDICATION: SEVERE DOG BITE EXAM DATE: 01/18/2025 05:13 PM COMPARISON: None TECHNIQUE: Multiple axial CT images of the left hand were obtained using bone algorithm. Axial and coronal reformatting was done. Bone and soft tissue windows were reviewed. Radiation Dose Information: CT Dose: CTDI volume is 7.75 mGy. Dose-length product is 209.38 mGy*cm Findings /impression: Mildly displaced small avulsion fracture of the head of the 3rd metacarpal. There is no evidence of dislocation, blastic, or lytic lesions. No radiopaque foreign bodies. Moderate dorsal soft tissue edema with a small soft tissue hematoma and moderate subcutaneous emphysema. X-Ray, Labs, Meds, VS Comment 39-year-old female with a history of hypertension, diabetes and dyslipidemia presenting with a dog bite to the right hand Vitals remarkable for respiratory rate 22, BP 152/100 Exam remarkable for diffuse right hand soft tissue swelling, bruising and tenderness with multiple superficial puncture wounds and 3 linear intermediate depth lacerations on the dorsum measuring 2.5, 2.5 and 3 cm Rhythm strip independently interpreted by me: Sinus rhythm, rate 95, no ectopy. CT right hand: Findings /impression: Mildly displaced small avulsion fracture of the head of the 3rd metacarpal. There is no evidence of dislocation, blastic, or lytic lesions. No radiopaque foreign bodies. Moderate dorsal soft tissue edema with a small soft tissue hematoma and moderate subcutaneous emphysema. CBC unremarkable, basic metabolic panel remarkable for glucose 118, coag panel unremarkable, lactate normal Patient treated with the following in the ED: Morphine 4 mg IV, Zofran 4 mg IV, Toradol 30 mg IV, doxycycline 100 mg IV, Flagyl 500 mg IV, fentanyl 12.5 mcg IV Patient's wounds were irrigated with copious amounts of normal saline/Betadine solution under high pressure, then her hand was soaked in Betadine/normal saline solution. Bacitracin and dressings were then applied. On re-evaluation, patient states pain has worsened. Vitals were stable. The right hand appears neurovascularly intact, however patient is having difficulty moving digits due to pain and edema. No obvious tendon injury is noted. 0103 Compartments are still soft, cap refill is < 2 sec. Mild erythema is developing. Plan is to transfer the patient for higher level of care, with evaluation by a hand specialist. Multiple facilities were contacted including [facility], [place] and [facility]. All facilities declined the patient, either due to being at capacity or unavailability of a hand specialist emergently. Discussed with Dr. Darling in ED at [place] who will accept the patient pending acceptance by their ortho/hand specialist. Ortho/hand requested XR, which were ordered. Pt endorsed to overnight ED physician pending XR results. Time of 1ST Reevaluation: 17:22 Reevaluation 1ST: Unchanged Patient Education/Counseling: Diagnosis, Need For Follow Up Family Education/Counseling: No Family Present Departure 1 Departure Time of Disposition: 21:36 Impression: Primary Impression: Dog bite of right hand Qualified Codes: S61.451A - Open bite of right hand, initial encounter; W54.0XXA - Bitten by dog, initial encounter Additional Impression: Open fracture of third metacarpal bone Qualified Codes: S62.392B - Other fracture of third metacarpal bone, right hand, initial encounter for open fracture Disposition: 02 SHORT TERM HOSPITAL Admit to: Med Surg Condition: Guarded Critical Care Note Critical Care Time?: No Stability Stability form required: No Heart Score Heart Score: Heart Score Response (Comments) Value History N/A 0 EKG N/A 0 Age N/A 0 Risk Factors N/A 0 Troponin N/A 0 Total 0 I personally scribed for HECTOR BUTLER MD ([email or web address]) on 01/18/25 at 17:00. Electronically submitted by Ruiz Ruff ([email or web address]). HECTOR BUTLER MD Jan 18, 2025 17:00
[2025-01-18] MEDS: MORPHINE SULFATE 4 MG/ML SYR/VIAL IV ONE (17:43)
[2025-01-18] MEDS: ONDANSETRON HCL 4 MG/2 ML VIAL IV ONE (17:43)
[2025-01-18] MEDS: metroNIDAZOLE 500MG/100ML 100 ML IV ONE (17:43)
[2025-01-18] MEDS: TETANUS-DIPTH-ACEL PERTUSSIS 0.5ML SYR Tdap IM ONE (18:44)
--- NOTE | 2025-01-18 18:46 | DVH ---
EXAM: CT CT L HAND WO CONTRAST INDICATION: SEVERE DOG BITE EXAM DATE: 01/18/2025 05:13 PM COMPARISON: None TECHNIQUE: Multiple axial CT images of the left hand were obtained using bone algorithm. Axial and co matthieu reformatting was done. Bone and soft tissue windows were reviewed. Radiation Dose Information: CT Dose: CTDI volume is 7.75 mGy. Dose-length product is 209.38 mGy*cm Findings /impression: Mildly displaced small avulsion fracture of the head of the 3rd metacarpal. There is no evidence of dislocation, blastic, or lytic lesions. No radiopaque foreign bodies. Moderate dorsal soft tissue edema with a small soft tissue hematoma and moderate subcutaneous emphyse ma.
[2025-01-18] MEDS: DOXYCYCLINE 100MG/100ML 100 ML IV ONE (19:05)
[2025-01-18 19:21] VITALS: PULSE 99; RESP 22; O2SAT 97
[2025-01-18] MEDS: KETOROLAC TROMETH 30 MG/ML 1ML VIAL IV ONE (19:46)
[2025-01-18 20:25] LABS: Basophils # (auto) 0.1 10 ^3/uL (0-0.2); Basophils % (auto) 0.5 % (0.0-2.0); Eosinophils # (auto) 0.2 10 ^3/uL (0-0.8); Eosinophils % (auto) 2.1 % (0.0-7.0); Hematocrit 40.2 % (36.0-46.0); Hemoglobin 14.1 g/dL (12.2-16.2); Lymphocytes % (auto) 19.2 % (10.0-50.0); Mean Corpuscular Volume 88.7 fL (80.0-100.0); Monocytes # (auto) 0.4 10 ^3/uL (0-1.3); Monocytes % (auto) 3.9 % (0.0-12.0); Neutrophils # (auto) 7.6 10 ^3/uL (1.6-8.6); Neutrophils % (auto) 74.3 % (37.0-80.0); Platelet Count (auto) 281 10^3/uL (140-450); Red Blood Cells 4.53 10^6/uL (4.0-5.20); Red Cell Distribution Width 14.2 % (11.8-14.3); White Blood Cell 10.3 10^3/uL (4.4-10.8)
[2025-01-18 20:36] LABS: INR 1.01 (0.9-1.15); Prothrombin Time 10.7 sec (9.3-11.8)
[2025-01-18 20:39] LABS: Alanine Aminotransferase 28 U/L (7-40); Albumin 4.6 g/dL (3.2-4.8); Alkaline Phosphatase 68 U/L (46-116); Anion Gap 9 (5-15); Aspartate Aminotransferase 30 U/L (13-40); BUN/Creatinine Ratio 17.9 (10.0-20.0); Bilirubin, Total 0.5 mg/dL (0.2-1.0); Blood Urea Nitrogen 15 mg/dL (9-23); CRP High Sensitivity 0.17 mg/dL (<1.0); Calcium 9.6 mg/dL (8.7-10.4); Carbon Dioxide 27 mmol/L (20-31); Chloride 104 mmol/L (98-107); Potassium 4.1 mmol/L (3.5-5.1); Sodium 140 mmol/L (136-145); Total Protein 7.2 g/dL (5.7-8.2)
[2025-01-18 20:47] LABS: Glucose 118 mg/dL (74-106)
[2025-01-18] MEDS: fentaNYL CITRATE 100 MCG/2 ML VL IV ONE (23:37)
--- NOTE | 2025-01-19 01:53 | DVH ---
CLINICAL INDICATION: dog bite TECHNIQUE: XY L HAND 3V XRAY Comparison: None FINDINGS: No osseous or joint abnormality identified with no fracture or dislocation. Joint spaces are normal. No radiopaque foreign body noted. IMPRESSION: No abnormality demonstrated.
[2025-01-19] MEDS: BACITRACIN TOP OINT 1 UD PKG TOP ONE (04:48)
[2025-01-19] MEDS: MORPHINE SULFATE 4 MG/ML SYR/VIAL IV ONE (05:12)
[2025-01-19] MEDS: HYDROcodone-ACET 10/325MG TAB ONE (06:27)
[2025-01-19 06:45] VITALS: RESP 18; O2SAT 97
[2025-01-19 07:00] VITALS: PULSE 63; RESP 18; TEMP 98.9; O2SAT 95
[2025-01-19 07:10] VITALS: BP 133/76
[2025-01-19] MEDS: fentaNYL CITRATE 100 MCG/2 ML VL IM ONE (07:10)
[2025-01-19] MEDS: HYDROcodone-ACET 10/325MG TAB PO ONE (07:25)
== END 2025-01-19 07:25 | disposition short-term general hospital (02) ==
LOC: ER 16:41
DX: S62.302A Unspecified fracture of third metacarpal bone, right hand, initial encounter for closed fracture (principal); E11.9 Type 2 diabetes mellitus without complications; E78.5 Hyperlipidemia, unspecified; I10 Essential (primary) hypertension; Z90.49 Acquired absence of other specified parts of digestive tract; Z90.710 Acquired absence of both cervix and uterus; Z98.51 Tubal ligation status; Z79.899 Other long term (current) drug therapy; Z88.0 Allergy status to penicillin; W54.0XXA Bitten by dog, initial encounter; Y93.89 Activity, other specified; Y92.89 Other specified places as the place of occurrence of the external cause; Y99.8 Other external cause status
CPT/HCPCS: 36415; 73130; 73200; 80053; 83605; 85025; 85610; 86141; 90471; 90715; 96365; 96367; 96375; 96376; 99285; J1885; J2270; J2405; J3010; J3490